=== PATIENT | male | born 1960 | race Caucasian/White ===

== ENCOUNTER 2024-10-30 09:58 | Outpatient (CLI) | payer MEDICARE | END 2024-10-30 09:59 | disposition home or self-care (01) | LOC: RAD 09:58 | PROVIDERS: ATTEND Nurse Practitioner Family | DX: I63.532 Cerebral infarction due to unspecified occlusion or stenosis of left posterior cerebral artery (principal) | CPT/HCPCS: 71046 ==

== ENCOUNTER 2024-12-05 09:33 | Observation (INO) | payer MEDICARE ==
[2024-12-05 10:20] VITALS: BMI 20.8
[2024-12-05] MEDS ORDERED: Nitroglycerin 0.4 MG TAB (25 Tab Bottle) SL PRN (10:27)
[2024-12-05] MEDS: Lisinopril 5 MG TAB PO SCH (12:01)
[2024-12-05] MEDS: Acetaminophen 325 MG TAB PO PRN (16:48)
[2024-12-06] MEDS: Aspirin 81 mg Enteric Coated Tablet PO SCH (10:01)
[2024-12-06] MEDS: Lisinopril 5 MG TAB PO SCH (10:02)
[2024-12-06 12:56] VITALS: BP 138/63; TEMP 98.1
[2024-12-09] MEDS ORDERED: Apixaban 5 MG TAB PO SCH (09:00)
== END 2024-12-06 13:50 | disposition home or self-care (01) ==
LOC: 2NO 09:33
PROVIDERS: ADMIT Internal Medicine Cardiovascular Disease; ATTEND Internal Medicine Cardiovascular Disease
DX: I25.10 Atherosclerotic heart disease of native coronary artery without angina pectoris (principal); I73.9 Peripheral vascular disease, unspecified; I44.7 Left bundle-branch block, unspecified; I50.22 Chronic systolic (congestive) heart failure; I65.23 Occlusion and stenosis of bilateral carotid arteries; I63.532 Cerebral infarction due to unspecified occlusion or stenosis of left posterior cerebral artery; I47.10 Supraventricular tachycardia, unspecified; I47.19 Other supraventricular tachycardia; J44.9 Chronic obstructive pulmonary disease, unspecified; E78.00 Pure hypercholesterolemia, unspecified; F17.200 Nicotine dependence, unspecified, uncomplicated; F10.10 Alcohol abuse, uncomplicated; Y90.9 Presence of alcohol in blood, level not specified; Z86.73 Personal history of transient ischemic attack (TIA), and cerebral infarction without residual deficits; Z79.01 Long term (current) use of anticoagulants; Z79.899 Other long term (current) drug therapy
CPT/HCPCS: 71045; 76936; J7030

== ENCOUNTER 2024-12-14 23:51 | Observation (INO) | payer MEDICARE ==
[2024-12-15 00:46] LABS: #Basophils 0.06 10x3/uL (0.0-0.2); #Eosinophils 0.14 10x3/uL (0.0-0.7); #Monocytes 0.95 10x3/uL (0.11-0.59); #Neutrophils 6.33 10x3/uL (1.40-6.50); %Basophils 0.6 % (0.0-1.0); %Eosinophils 1.5 % (0.0-10.0); %Lymphocytes 21.2 % (21.0-51.0); %Monocytes 10.0 % (0.0-10.0); %Neutrophils 66.5 % (42.0-75.0); Hematocrit 34.0 % (42.0-52.0); Hemoglobin 11.7 g/dL (14.0-18.0); Mean Corpuscular Hemoglobin 32.3 pg (27.0-31.0); Mean Corpuscular Volume 93.9 fL (78.0-98.0); Platelet Count 272 10x3/uL (130-400); Red Blood Cell (RBC) Count 3.62 mill/uL (4.70-6.10); White Blood Cell (WBC) Count 9.52 10x3/uL (4.8-10.8)
[2024-12-15 01:09] LABS: ALT (SGPT) 57 U/L (Less than 45); AST (SGOT) 42 U/L (11-34); Albumin 4.0 g/dL (3.1-4.5); Alkaline Phosphatase 89 U/L (40-110); Anion Gap 13 mmol/L (10-20); BUN (Urea Nitrogen) 15 mg/dL (8.4-25.7); Bilirubin, Total 0.6 mg/dL (0.3-1.2); Calc. Creatinine Clearance 0 mL/min (70-130); Calcium 8.8 mg/dL (7.8-10.44); Carbon Dioxide 20 mmol/L (23-31); Chloride 95 mmol/L (98-107); Globulin 2.9 g/dL (2.4-3.5); Glucose 111 mg/dL (80-115); Lipase 16 U/L (8-78); Magnesium 1.4 mg/dL (1.6-2.6); Potassium 4.0 mmol/L (3.5-5.1); Sodium 124 mmol/L (136-145)
[2024-12-15] MEDS ORDERED: Magnesium 2 GM/50 ML BAG (IN WATER) ONE ×2 (03:25→10:08)
[2024-12-15] MEDS ORDERED: Nitroglycerin 0.4 MG TAB 1 EACH ONE (03:25)
[2024-12-15] MEDS ORDERED: Ondansetron PF 4 MG/2 ML Vial IVP PRN (04:36)
[2024-12-15 05:47] VITALS: BMI 19.8
[2024-12-15] MEDS ORDERED: Nitroglycerin 0.4 MG TAB (25 Tab Bottle) SL PRN (08:47)
[2024-12-15] MEDS ORDERED: Apixaban 5 MG TAB PO SCH (09:00)
[2024-12-15] MEDS ORDERED: Lisinopril 5 MG TAB PO SCH (09:00)
[2024-12-15] MEDS ORDERED: Apixaban 5 MG TAB ONE (10:07)
[2024-12-15] MEDS ORDERED: Lisinopril 5 MG TAB ONE (10:07)
[2024-12-15] MEDS ORDERED: Furosemide 40 MG (4 mL) VIAL ONE (10:07)
[2024-12-15] MEDS: Magnesium 2 GM/50 ML(in water) 2 GM in Premix 1 BAG IVPB SCH (10:44)
[2024-12-15] MEDS: Apixaban 5 MG TAB PO SCH (10:45)
[2024-12-15] MEDS: Furosemide 40 MG (4 mL) VIAL SLOW IVP SCH (10:45)
[2024-12-15] MEDS: Lisinopril 5 MG TAB PO SCH (10:45)
[2024-12-15] MEDS: Acetaminophen 325 MG TAB PO PRN (12:15)
[2024-12-15] MEDS ORDERED: Ondansetron PF 4 MG/2 ML Vial ONE (13:50)
[2024-12-15] MEDS ORDERED: Non-Formulary Item 1 EACH (Trazodone Hcl [Trazodone Hcl] 100 MG Tablet) PO SCH (21:00)
[2024-12-15] MEDS: Gabapentin 300 MG CAP PO SCH (22:17)
[2024-12-16 05:37] LABS: #Basophils 0.04 10x3/uL (0.0-0.2); #Eosinophils 0.19 10x3/uL (0.0-0.7); #Monocytes 0.87 10x3/uL (0.11-0.59); #Neutrophils 5.31 10x3/uL (1.40-6.50); %Basophils 0.5 % (0.0-1.0); %Eosinophils 2.2 % (0.0-10.0); %Lymphocytes 25.1 % (21.0-51.0); %Monocytes 10.1 % (0.0-10.0); %Neutrophils 61.9 % (42.0-75.0); Hematocrit 35.1 % (42.0-52.0); Hemoglobin 11.7 g/dL (14.0-18.0); Mean Corpuscular Hemoglobin 31.4 pg (27.0-31.0); Mean Corpuscular Volume 94.1 fL (78.0-98.0); Platelet Count 281 10x3/uL (130-400); Red Blood Cell (RBC) Count 3.73 mill/uL (4.70-6.10); White Blood Cell (WBC) Count 8.59 10x3/uL (4.8-10.8)
[2024-12-16 05:51] LABS: Anion Gap 12 mmol/L (10-20); BUN (Urea Nitrogen) 26 mg/dL (8.4-25.7); Calc. Creatinine Clearance 28 mL/min (70-130); Calcium 9.0 mg/dL (7.8-10.44); Carbon Dioxide 22 mmol/L (23-31); Chloride 101 mmol/L (98-107); Glucose 94 mg/dL (80-115); Potassium 5.4 mmol/L (3.5-5.1); Sodium 130 mmol/L (136-145)
[2024-12-16 11:39] VITALS: BP 101/57; TEMP 97.4
== END 2024-12-16 15:16 | disposition hospice, home (50) ==
LOC: ERS 23:51 → ERHOLD 12-15 04:02 → OBS 12-15 16:09
PROVIDERS: ADMIT Internal Medicine; ATTEND Hospitalist
DX: I25.110 Atherosclerotic heart disease of native coronary artery with unstable angina pectoris (principal); I11.0 Hypertensive heart disease with heart failure; I50.23 Acute on chronic systolic (congestive) heart failure; I73.9 Peripheral vascular disease, unspecified; I65.23 Occlusion and stenosis of bilateral carotid arteries; E87.1 Hypo-osmolality and hyponatremia; Z86.73 Personal history of transient ischemic attack (TIA), and cerebral infarction without residual deficits; Z87.891 Personal history of nicotine dependence; Z79.899 Other long term (current) drug therapy
CPT/HCPCS: 71045; 80048; 80053; 83690; 83735; 83880; 84484 ×2; 85025 ×2; 93005; J1940; J2405; J3475; 36415; 96375; 96376; G0378